=== PATIENT | male | born 1985 | race Two or more races ===

== ENCOUNTER 2021-11-11 23:46 | Emergency (ER) | payer MEDICAID, OTHER ==
[~2021-11-11] VITALS: Ht 170.2 cm; Wt 71.2 kg
[2021-11-11 23:47] VITALS: BP 138/85
[2021-11-12] MEDS ORDERED: KETOROLAC TROMETH 30 MG/ML 1ML VIAL IM ONE (00:30)
[2021-11-12] MEDS ORDERED: NEOMYCIN-BACITRACIN-POLYM UNITDOSE PKG TOP OINT TOP ONE (00:45)
[2021-11-12] MEDS ORDERED: IBUP800T27 PO (00:47)
[2021-11-12] MEDS ORDERED: CLIN300C8 PO (00:47)
[2021-11-12] MEDS ORDERED: TETANUS-DIPTH-ACEL PERTUSSIS 0.5ML SYR Tdap IM ONE (01:00)
== END 2021-11-12 06:50 | disposition home or self-care (01) ==
LOC: ER 23:46
DX: S92.912A Unspecified fracture of left toe(s), initial encounter for closed fracture (principal); S62.631A Displaced fracture of distal phalanx of left index finger, initial encounter for closed fracture; W18.39XA Other fall on same level, initial encounter; Y93.89 Activity, other specified; Y92.89 Other specified places as the place of occurrence of the external cause; Y99.8 Other external cause status
CPT/HCPCS: 73630; 90471; 90715; 96372; 99283; J1885; 29515